=== PATIENT | male | born 1990 | race Caucasian/White ===

== ENCOUNTER 2019-06-13 11:09 | Emergency (ER) | payer MEDICARE, OTHER ==
[2019-06-13 11:32] VITALS: BP 113/72
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
== END 2019-06-13 11:38 | disposition home or self-care (01) ==
LOC: ED 11:09
DX: L55.0 Sunburn of first degree (principal); L25.8 Unspecified contact dermatitis due to other agents; L03.116 Cellulitis of left lower limb